=== PATIENT | male | born 1950 | race African-American/Black ===

== ENCOUNTER 2023-07-27 05:46 | Day surgery (SDC) | payer OTHER ==
[2023-07-22 13:58] LABS: Potassium 3.8 mEq/L (3.5-5.1)
[2023-07-27] MEDS ORDERED: NA CHLORIDE 0.9% 1,000 ML ONE (06:20)
[2023-07-27] MEDS ORDERED: CYCLOPENTOLATE 2% OPTH 2 ML OPTH ONE (06:35)
[2023-07-27] MEDS ORDERED: KETOROLAC OPTHALMIC 5 ML BOT OPTH ONE (06:35)
[2023-07-27] MEDS ORDERED: TROPICAMIDE 1% OPTH 3 ML BOT OPTH ONE (06:35)
[2023-07-27] MEDS ORDERED: MOXIFLOXACIN HCL 0.5% 3ML OPTH OPTH ONE (06:35)
[2023-07-27] MEDS ORDERED: PHENYLEPHRINE 10% OPTH 5ML OPTH ONE (06:35)
[2023-07-27] MEDS ORDERED: KETOROLAC OPTHALMIC 5 ML BOT ONE (06:41)
[2023-07-27] MEDS ORDERED: PHENYLEPHRINE 10% OPTH 5ML ONE (06:41)
[2023-07-27] MEDS ORDERED: TROPICAMIDE 1% OPTH 3 ML BOT ONE (06:41)
[2023-07-27] MEDS ORDERED: CYCLOPENTOLATE 2% OPTH 2 ML ONE (06:41)
[2023-07-27] MEDS ORDERED: MOXIFLOXACIN HCL 10 DROPS/ML **OR USE OPTH ONE ×2 (06:47→08:07)
[2023-07-27] MEDS ORDERED: POVIDONE-IODINE 5% EYE DROPS ONE (07:06)
[2023-07-27] MEDS ORDERED: TOBRADEX 0.3-0.1% OPTH OINTMENT ONE (07:06)
[2023-07-27] MEDS ORDERED: DUOVISC 1 KIT OPTH ONE (07:06)
[2023-07-27] MEDS ORDERED: BSS OPTHALMIC SOL 15 ML OPTH ONE (07:06)
[2023-07-27] MEDS ORDERED: LIDOCAINE 2% MPF 5 ML VIAL ONE (07:15)
[2023-07-27] MEDS ORDERED: FENTANYL CITR 100 MCG/2 ML ONE (07:15)
[2023-07-27] MEDS ORDERED: propofoL 200 MG/20 ML VIAL IV ONE (07:15)
[2023-07-27] MEDS ORDERED: MIDAZOLAM HCL 2 MG/2 ML INJ ONE (07:15)
[2023-07-27] MEDS: BALANCED SALT IRRIG PLAIN 500 ML IRR ONE ×2 (07:30→07:49)
[2023-07-27] MEDS: EPINEPHRINE/PF 1 MG/ML AMP ONE ×2 (07:31→07:49)
[2023-07-27] MEDS ORDERED: GLYCOPYRROLATE 0.2 MG/ML SYR ONE (08:07)
[2023-07-27] MEDS ORDERED: ONDANSETRON 4 MG/2 ML VIAL ONE (08:17)
--- NOTE | 2023-07-27 10:15 | OP ---
Date of Procedure: 07/27/2023 Surgeon: Juice Vargas MD Tool Profiling Machine Set Up Operator: None. Preoperative Diagnosis: Visually significant cataract, combined senile type and glaucoma. Postoperative Diagnosis: Visually significant cataract, combined senile type and glaucoma. Procedure Performed: 1. Cataract extraction, left eye with placement of intraocular lens. 2. Goniosynechialysis, left eye. 3. Deployment of Omni device/canaloplasty, left eye. 4. Peripheral iridotomy, left eye. Description Of Procedure: After being properly identified in the preoperative holding area, patient was taken back to the operating room where a time-out was performed. The patient was draped. Examination of the eye underneath the operating microscope revealed a moderately dilated pupil and paracentesis wounds were made in the 6 o'clock and 12 o'clock position, followed by instillation of Viscoat and then the main phaco incision wound was made temporally using a 2.2 mm keratome. At this point, the circulating nurse stated that the eye had not been prepped despite doing the time-out. We immediately stopped the procedure. As the entry wound had already been made, Betadine was opened and instilled into the conjunctival fornix, flooding it, and this was repeated x3, and the decision to use intracameral antibiotics at the end of the case was made. Thereafter, the procedure continued as normal. A continuous curvilinear capsulorrhexis was created using a cystotome and completed with an Utrata forceps. Hydrodissection and hydrodelineation were carried out using a Ackerman cannula resulting in free rotation of the lens nucleus, and all 4 quadrants were removed. Thereafter, the phaco handpiece was exchanged for bimanual irrigation and aspiration handpieces and the remaining cortical material removed. After approximately half of the cortical material removed, the patient despite being intubated appeared to move suddenly. Instruments were with withdrawn immediately without any damage. However, subsequent to that, there did appear to be some posterior pressure present. There was no change in the red reflex and this was attributed to probable irrigation through the pre-existing PI during the rapid removal of surgical instrumentation upon patient movement and thereafter the procedure was carried out under additional viscoelastic, but without complication. A Boom and Boom model DCB00 power 22.5 diopters was implanted into the capsular bag and thereafter rotated into position. The patient's head was then tilted 45 degrees to the right and the microscope tilted 45 degrees as well and a gonioprism with viscoelastic in the interface was used to visualize the angle structures. Of note, the trabecular meshwork was not initially viewed and there existed a significant amount of PAS and therefore I performed a goniosynechialysis approximately 110 degrees in order to allow proper visualization of the trabecular meshwork. Thereafter, a canaloplasty was carried out using the Omni device filled with Healon and this was performed 180 degrees, visualization precluding an additional 180 degrees and because of this also, the decision to place a Hydrus Microstent was abandoned. The head was thereafter rotated back into position and irrigation and aspiration performed in order to remove any remaining viscoelastic. The wounds were hydrated, but the iris was grasped and cut with a pair of iris/Vannas scissors in order to enlarge the laser PI that was made previously and to act as definitive treatment. The iris was redeposited and a single 10-0 nylon suture was placed to the main phaco incision wound for safety. Intracameral Vigamox was instilled into the anterior chamber and once all wounds were confirmed to be tight again, the procedure concluded with the patient tolerating the procedure well, being under general anesthesia the entire time despite moving. Only complication of note is the failure to visualize the angle structures, which is not unanticipated given the patient's acute and likely chronic attacks and the prep as noted above. The patient is to follow up with myself, Dr. Juice Vargas, tomorrow. NELYG/RONIL Voice ID: [id number] Report ID: [id number]
[2023-07-27 10:19] VITALS: BP 144/74; TEMP 97; O2SAT 99
== END 2023-07-27 10:13 | disposition home or self-care (01) ==
LOC: OR 05:46
PROVIDERS: ATTEND Ophthalmology
PROC: 087Y0DZ Dilation of Left Lacrimal Duct with Intraluminal Device, Open Approach (ICD-10-PCS; 2023-07-27)
PROC: 089D3ZZ Drainage of Left Iris, Percutaneous Approach (ICD-10-PCS; 2023-07-27)
PROC: 08N Eye, Release (ICD-10-PCS; 2023-07-27)
PROC: 08RK30Z Replacement of Left Lens with Intraocular Telescope, Percutaneous Approach (ICD-10-PCS; principal; 2023-07-27 07:30)
DX: H25.812 Combined forms of age-related cataract, left eye (principal); H40.031 Anatomical narrow angle, right eye; H40.223 Chronic angle-closure glaucoma, bilateral; H40.1132 Primary open-angle glaucoma, bilateral, moderate stage
CPT/HCPCS: 93005; 80048; 36415; 82947 ×2; 66984; 66175; 66500; 65865; J2704; J0171; J1885 ×2; J2001; J3010; J2405; J7030; J2250

== ENCOUNTER 2024-03-03 18:58 | Emergency (ER) | payer OTHER ==
--- NOTE | 2024-03-03 19:47 | RAD REPORT ---
EXAM DESCRIPTION: CT - Stone Protocol - 03/03/2024 7:35 pm CLINICAL HISTORY: Flank pain. Abd pain;Flank pain COMPARISON: Abdomen Pelvis Wo Contrast dated 04/27/2017 TECHNIQUE: Axial images were obtained without oral or IV contrast. Lack of contrast limits solid org an and vascular assessment. The [id number] spans the entirety of the system partially obscuring uppermost abdomen and lung bases. Coronal reformatted images were obtained and reviewed. All CT scans are performed using dose optimization technique as appropriate and may include automated exposure control or mA/KV adjustment according to patient size. FINDINGS: The lower lung stovall are clear. Imaged portions of the liver and spleen show no suspicious findings on non-contrast imaging. The panc reas and adrenal glands are normal. No pathologic lymphadenopathy in the abdomen or pelvis. Mild atrophy of both kidneys. No hydronephrosis. No bowel obstruction, free air, free fluid or abscess. Prominent stool retained throughout the colon. Normal appendix. Moderate fat containing umbilical hernia. Moderate lower lumbar degenerative changes. IMPRESSION: No urinary tract stones or obstructive uropathy.
[2024-03-03 19:49] LABS: Absolute Eosinophils 0.3 K/uL (0-0.5); Absolute Lymphocytes (CBC) 1.7 K/uL (0.7-4.9); Absolute Monocytes 0.8 K/uL (0.1-1.3); Basophils % 0.5 % (0-1.3); Eosinophils % 3.8 % (0-4.4); Hematocrit 32.6 % (39.6-49.0); Hemoglobin 10.5 g/dL (13.6-17.9); Lymphocytes % 19.5 % (15.3-44.8); MCH 29.5 pg (27.0-35.0); MCHC 32.3 g/dL (32.0-36.0); MCV 91.3 fL (80-100); MPV 8.2 fL (7.6-11.3); Monocytes % 8.9 % (3.3-12.3); Neutrophils % 67.3 % (41.7-73.7); Nucleated Red Blood Cells % 0.1 % (0-0); Platelets 146 thou/uL (152-406); RBC Red Blood Cell Count 3.57 M/uL (4.33-5.43); Red Cell Distribution Width 19.7 % (12.1-15.2)
[2024-03-03 20:22] LABS: Anion Gap 11.6 mEq/L (5.0-15.0); Potassium 3.6 mEq/L (3.5-5.1)
--- NOTE | 2024-03-03 21:39 | EDPHYS ---
Physician Documentation [facility] Name: Jac Cordova Age: 73 yrs Sex: Male : 1950 Arrival Date: 03/03/2024 Time: 18:58 Bed 15 Private MD: ED Physician Jeyson Carrasco HPI: 03/03 19:12 This 73 yrs old Black Male presents to ER via Ambulatory with complaints of Urinary kb Problem. 19:12 Pt is a 73 year old male who presents for groin pain and decreased urination. States he kb normally urinates 2-3 times per day, but hasn't urinated since last night. Went to dialysis today and mentioned that he hadn't urinated so he was told to come to the ER to get checked out. Reports groin pain has been ongoing for a couple of months. Was put on antibiotics about 2 weeks ago for UTI. Denies fever. . Historical: - Allergies: 19:06 No Known Allergies; ll1 - PMHx: 19:06 dialysis; Hypertensive disorder; Diabetes mellitus; ll1 - PSHx: 19:06 Hemorrhoidectomy; back surgery; ll1 - Immunization history:: Adult Immunizations up to date. - Infectious Disease History:: Denies. - Social history:: Smoking status: Patient denies any tobacco usage or history of. ROS: 19:12 Constitutional: As per HPI kb Exam: 21:56 Constitutional: This is a well developed, well nourished patient who is awake, alert, kb and in no acute distress. Head/Face: Normocephalic, atraumatic. ENT: Moist Mucous membranes Cardiovascular: Regular rate Respiratory: Respirations even and unlabored. No increased work of breathing. Talking in full sentences Abdomen/GI: Soft, non-tender. No distention Skin: Warm, dry with normal turgor. Normal color. MS/ Extremity: Pulses equal, no cyanosis. Neurovascular intact. Full, normal range of motion. Neuro: Awake and alert, GCS 15, oriented to person, place, time, and situation. Moves all extremities. Normal gait. Vital Signs: 19:07 BP 131 / 58; Pulse 83; Resp 17; Temp 98.5; Pulse Ox 96% ; Weight 74.84 kg; Height 5 ft. ll1 8 in. ; Pain 6/10; 20:49 BP 111 / 59; Pulse 70; Resp 18; Pulse Ox 99% ; cp4 21:44 BP 120 / 68; Pulse 68; Resp 18; Pulse Ox 100% ; cp4 19:07 Body Mass Index 25.09 (74.84 kg, 172.72 cm) ll1 19:07 Pain Scale: Adult ll1 MDM: 19:06 Patient medically screened. kb 21:56 Differential diagnosis: urinary retention, uti, kidney stone, progression of CKD. Data kb reviewed: vital signs, nurses notes. Consideration of Admission/Observation Escalation of care including admission/observation considered. admission considered, but pt has no abd tenderness, vital signs wnl, afebrile, labs and ct reassuring. No urinary retention. Pt would like to go home. Straight cath attempted and small amount of urine collected, but not enough for urinalysis. Offered IV fluids, but pt prefers to drink fluids at home. . Historians other than the Patient: Daughter/Son: son. Counseling: I had a detailed discussion with the patient and/or guardian regarding the historical points, exam findings, and any diagnostic results supporting the discharge/admit diagnosis, lab results, radiology results, the need for outpatient follow up, a family practitioner, to return to the emergency department if symptoms worsen or persist or if there are any questions or concerns that arise at home. 21:59 Care significantly affected by the following chronic conditions: Diabetes, kb Hypertension, Chronic Kidney Disease. 03/03 19:16 Order name: CBC with Diff; Complete Time: 19:54 kb 03/03 19:16 Order name: Basic Metabolic Panel; Complete Time: 20:22 kb 03/03 19:16 Order name: CT Stone Protocol; Complete Time: 19:53 kb 03/03 19:16 Order name: IV Start; Complete Time: 19:30 kb 03/03 20:54 Order name: Straight Cath - Urine; Complete Time: 21:10 kb Administered Medications: No medications were administered Disposition Summary: 03/03/24 21:38 Discharge Ordered Notes: Location: Home kb Condition: Stable kb Diagnosis - Decreased urination kb Followup: kb - With: Emergency Department - When: As needed - Reason: Worsening of condition Followup: kb - With: Private Physician - When: 2 - 3 days - Reason: Recheck today's complaints, Continuance of care, Re-evaluation by your physician Forms: - Medication Reconciliation Form kb - Antibiotic Education kb - Prescription Opioid Use kb - Patient Portal Instructions kb - Leadership Thank You Letter kb Signatures: Dispatcher [employer] EDCris Mccann, JOHN-Jonas LOPEZ-Pedro Pablo Villalobos, RN RN ll1 Corrections: (The following items were deleted from the chart) 19:16 19:16 Urinalysis+U.LAB.BRZ ordered. EDMS EDMS 19:16 19:16 CBC+H.LAB.BRZ ordered. EDMS EDMS 19:16 19:16 BASIC METABOLIC PANEL+C.LAB.BRZ ordered. EDMS EDMS 19:16 19:16 Stone Protocol+CT.RAD.BRZ ordered. EDMS EDMS
--- NOTE | 2024-03-03 21:39 | ER ---
Nurse's Notes [facility] Name: Jac Cordova Age: 73 yrs Sex: Male : 1950 Arrival Date: 03/03/2024 Time: 18:58 Bed 15 Private MD: Diagnosis: Decreased urination Presentation: 03/03 19:07 Chief complaint: Patient states: Last urination last night. Sent by dialysis after his ll1 session. Coronavirus screen: Client denies travel out of the [place] in the last 14 days. At this time, the client does not indicate any symptoms associated with coronavirus-19. Ebola Screen: Patient denies travel to an Ebola-affected area in the 21 days before illness onset. Initial Sepsis Screen: Does the patient meet any 2 criteria? No. Patient's initial sepsis screen is negative. Does the patient have a suspected source of infection? No. Patient's initial sepsis screen is negative. Risk Assessment: Do you want to hurt yourself or someone else? Patient reports no desire to harm self or others. Onset of symptoms was March 02, 2024. 19:07 Method Of Arrival: Ambulatory ll1 19:07 Acuity: CAPRICE 3 ll1 Triage Assessment: 19:08 General: Appears in no apparent distress. Behavior is calm, cooperative, appropriate ll1 for age. Pain: Complains of pain in R flank Quality of pain is described as aching. : Reports inability to void, since last night pain in right flank(s). Historical: - Allergies: 19:06 No Known Allergies; ll1 - PMHx: 19:06 dialysis; Hypertensive disorder; Diabetes mellitus; ll1 - PSHx: 19:06 Hemorrhoidectomy; back surgery; ll1 - Immunization history:: Adult Immunizations up to date. - Infectious Disease History:: Denies. - Social history:: Smoking status: Patient denies any tobacco usage or history of. Screenin:43 [facility] ED Fall Risk Assessment (Adult) History of falling in the last 3 months, cp4 including since admission No falls in past 3 months (0 pts) Confusion or Disorientation No (0 pts) Intoxicated or Sedated No (0 pts) Impaired Gait No (0 pts) Mobility Assist Device Used No (0 pt) Altered Elimination No (0 pt) Score/Fall Risk Level 0 - 2 = Low Risk Oriented to surroundings, Maintained a safe environment, Assessed \T\ reinforced patient's understanding of fall precautions, Hourly rounding (assess needs \T\ fall precautionary measures) done. Abuse screen: Denies threats or abuse. Nutritional screening: No deficits noted. Tuberculosis screening: No symptoms or risk factors identified. Assessment: 19:43 General: Appears uncomfortable, Behavior is calm, cooperative, appropriate for age. cp4 Pain: Complains of pain in pelvis Pain began 1 day ago. : Reports inability to void, since last night. 21:11 Reassessment: Straight cath complete with little to no urine. Urine in tube only, not cp4 enough to send to lab. Vital Signs: 19:07 BP 131 / 58; Pulse 83; Resp 17; Temp 98.5; Pulse Ox 96% ; Weight 74.84 kg; Height 5 ft. ll1 8 in. ; Pain 6/10; 20:49 BP 111 / 59; Pulse 70; Resp 18; Pulse Ox 99% ; cp4 21:44 BP 120 / 68; Pulse 68; Resp 18; Pulse Ox 100% ; cp4 19:07 Body Mass Index 25.09 (74.84 kg, 172.72 cm) ll1 19:07 Pain Scale: Adult ll1 ED Course: 19:00 Patient arrived in ED. mr 19:06 [facility] kb 19:06 Jeyson Carrasco MD is Attending Physician. kb 19:08 Triage completed. ll1 19:08 Arm band placed on. ll1 19:30 Basic Metabolic Panel Sent. as6 19:30 CBC with Diff Sent. as6 19:30 Inserted saline lock: 20 gauge in right antecubital area, using aseptic technique. as6 Blood collected. 19:36 CT Stone Protocol In Process Unspecified. EDMS 19:37 Marcia Monroy is Primary Nurse. cp4 19:43 Bed in low position. Call light in reach. Side rails up X2. cp4 19:43 No provider procedures requiring assistance completed. cp4 21:14 Straight cath inserted, using sterile technique, 16 Fr. little urine obtained from cp4 straight cath, not enough to send to lab. Provider notified. 21:45 Provided Education on: urinary problems. cp4 21:45 intact, bleeding controlled, No redness/swelling at site. Pressure dressing applied. cp4 Administered Medications: No medications were administered Medication: 19:43 VIS not applicable for this client. cp4 Outcome: 21:38 Discharge ordered by MD. ford 21:45 Discharged to home ambulatory, cp4 21:45 Condition: stable 21:45 Discharge instructions given to patient, Instructed on discharge instructions, follow up and referral plans. Demonstrated understanding of instructions, follow-up care, 21:46 Patient left the ED. cp4 Signatures: Dispatcher [employer] EDMS Cris Le, JOHN-C BEAM SAW OPERATOR-CkCamelia Eason, Reg Reg mr Pedro Pablo Eaton, RN RN ll1 Jameel Marie, RN RN as6 Marcia Monroy cp4
[2024-03-03 22:06] VITALS: BP 120/68; TEMP 98.5; O2SAT 100
== END 2024-03-03 21:46 | disposition home or self-care (01) ==
LOC: ER 18:58
DX: R39.12 Poor urinary stream (principal)
CPT/HCPCS: 36415; 51702; 74176; 76377; 80048; 85025; 99284